=== PATIENT | female | born 1955 | race Caucasian/White ===

== ENCOUNTER 2021-10-16 16:21 | Emergency (ER) | payer OTHER, SELFPAY ==
[2021-10-16 16:40] VITALS: BP 127/47; PULSE 63; RESP 18; TEMP 36.9; O2SAT 100
--- NOTE | 2021-10-16 16:55 | ED.FEMALEGU ---
HPI - Female Genitourinary General Chief complaint: Urogenital-Female Stated complaint: UTI Time Seen by Provider: 10/16/21 16:56 Source: patient and RN notes reviewed Mode of arrival: ambulatory Limitations: no limitations History of Present Illness HPI Narrative: 65-year-old female presents to the [facility] with complaints of internal burning with urination and dribbling. Patient reports that she has been drinking diet soda quite often. Denies any fevers, abdominal pain, CVA tenderness. No chest pain or shortness of breath. Visiting from out of town because her son is in the hospital. Related Data Home Medications Medication Instructions Recorded Confirmed aspirin 325 mg tablet,delayed 1 tablet PO DAILY 10/16/21 10/16/21 release (Ecotrin) atorvastatin 40 mg tablet 1 tablet PO DAILY 10/16/21 10/16/21 clopidogrel 75 mg tablet 1 tablet PO DAILY 10/16/21 10/16/21 diltiazem HCl 240 mg 1 cap PO DAILY 10/16/21 10/16/21 capsule,extended release 24 hr furosemide 40 mg tablet 1 tablet PO DAILY 10/16/21 10/16/21 glimepiride 2 mg tablet 1 tablet PO DAILY 10/16/21 10/16/21 hydrochlorothiazide 25 mg tablet 1 tablet PO DAILY 10/16/21 10/16/21 insulin glargine 100 unit/mL (3 1 ea subcut DIRECTED 10/16/21 10/16/21 mL) subcutaneous pen (Basaglar KwikPen U-100 Insulin) isosorbide mononitrate 30 mg 1 tablet PO DAILY 10/16/21 10/16/21 tablet,extended release 24 hr loratadine 10 mg tablet (Allergy 1 tablet PO DAILY 10/16/21 10/16/21 Relief (loratadine)) metformin 500 mg tablet 1 tablet PO BID 10/16/21 10/16/21 sertraline 50 mg tablet 1 tablet PO DAILY 10/16/21 10/16/21 Allergies Allergy/AdvReac Type Severity Reaction Status Date / Time No Known Allergies Allergy Verified 10/16/21 17:01 Review of Systems Review of Systems: All systems reviewed & are unremarkable except as noted in HPI and below Constitutional: Constitutional: Reports no additional constitutional complaints, Denies chills and Denies fever(s) Eyes: Eyes: Reports no additional eye complaints ENT: Reports system reviewed and no additional complaints, except as documented Cardiovascular: Cardiovascular: Reports no additional cardiovascular complaints Respiratory: Respiratory: Reports no additional respiratory complaints Gastrointestinal: Gastrointestinal: Reports no additional gastrointestinal complaints Genitourinary: Genitourinary: Reports as per HPI, Reports dysuria, Denies pelvic pain and Denies flank pain Musculoskeletal: Musculoskeletal: Reports no additional musculoskeletal complaints Integumentary/Breasts: Skin/Breast: Reports system reviewed and no additional complaints, except as docu Neurologic: Reports system reviewed and no additional complaints, except as documented Psychiatric: Psychiatric: Reports no additional psychiatric complaints Allergic/Immunologic: Allergic/Immunologic: Reports no additional allergic/immunologic complaints PMFSH Past Medical History Medical History (Updated 10/18/21 @ 07:46 by Екатерина Schaefer APRN) Diabetes High cholesterol History of high blood pressure Social History Social History (Updated 10/18/21 @ 07:46 by Екатерина Schaefer APRN) Gender identity (if verbalized by the patient): Female Comments At the time of my signature, I reviewed and agree with the nursing past medical, surgical, social, and family history. There is no relevant family history pertinent to the patient complaint. Exam Const: General: healthy appearing, no acute distress and alert Nutritional Appearance: well nourished and obese Orientation/consciousness: patient oriented x3 Limitations: no limitations HENMT: Head: normal to inspection Ears: external ears normal General nose exam: Normal external nose present Eyes: General: appearance normal, both eyes and all related structures Pupils: Equal, round and reactive pupils present Neck: Neck: normal visual inspection, no lymphadenopathy and no meningeal signs
== END 2021-10-16 17:15 | disposition home or self-care (01) ==
PROVIDERS: Emergency Provider Nurse Practitioner
DX: R30.0 Dysuria (principal); E11.9 Type 2 diabetes mellitus without complications; E78.00 Pure hypercholesterolemia, unspecified; I10 Essential (primary) hypertension; Z79.82 Long term (current) use of aspirin
CPT/HCPCS: 81003; 87086; 87088; 99213; G0463